=== PATIENT | female | born 2000 | race American Indian/Alaskan Native ===

== ENCOUNTER 2021-03-01 15:55 | Emergency (ER) | payer MEDICAID ==
--- NOTE | 2021-03-01 19:32 | Emergency Department Report ---
- General Chief Complaint: Chest Pain Stated Complaint: CP, LOYA X 3 DAYS Time Seen by Provider: 03/01/21 19:23 Source: patient Mode of arrival: Ambulatory Limitations: No Limitations - History of Present Illness Initial Comments: Patient is a 21-year-old female presents emergency room complaints of "not feeling well" for the past 3 days. Patient states that she recently traveled to [place]. She denies any known sick contacts. She has not been vaccinated for COVID-19. She has not been tested for COVID-19. She has associated chest tightness, headache, body aches, chills. She reports that she has mild shortness of breath. She denies any fever, vomiting, diarrhea, sore throat, ear pain. No past medical history. No allergies to medications. - Related Data Previous Rx's Medication Instructions Recorded Last Taken Type Benzonatate [Tessalon Perles] 100 mg PO Q8HR PRN #12 capsule 03/01/21 Unknown Rx Naproxen 375 mg PO BID PRN #14 tablet 03/01/21 Unknown Rx guaiFENesin ER [Mucinex ER] 600 mg PO Q12H #14 tablet.er 03/01/21 Unknown Rx Allergies Allergy/AdvReac Type Severity Reaction Status Date / Time No Known Allergies Allergy Unverified 03/01/21 18:07 ED Review of Systems ROS: Stated complaint: CP, LOYA X 3 DAYS Other details as noted in HPI Comment: All other systems reviewed and negative ED Past Medical Hx - Medications Home Medications: Home Medications Medication Instructions Recorded Confirmed Last Taken Type Benzonatate [Tessalon Perles] 100 mg PO Q8HR PRN #12 capsule 03/01/21 Unknown Rx Naproxen 375 mg PO BID PRN #14 tablet 03/01/21 Unknown Rx guaiFENesin ER [Mucinex ER] 600 mg PO Q12H #14 tablet.er 03/01/21 Unknown Rx ED Physical Exam - General Limitations: No Limitations General appearance: alert, in no apparent distress - Head Head exam: Present: atraumatic, normocephalic - Eye Eye exam: Present: normal appearance - ENT ENT exam: Present: mucous membranes moist - Respiratory Respiratory exam: Present: normal lung sounds bilaterally. Absent: respiratory distress, wheezes, rales, rhonchi, stridor, chest wall tenderness, accessory muscle use, decreased breath sounds, prolonged expiratory - Cardiovascular Cardiovascular Exam: Present: regular rate, normal rhythm, normal heart sounds. Absent: systolic murmur, diastolic murmur, rubs, gallop - Neurological Exam Neurological exam: Present: alert, oriented X3 - Psychiatric Psychiatric exam: Present: normal affect, normal mood - Skin Skin exam: Present: warm, dry, intact ED Course Vital Signs 03/01/21 18:07 Temperature 98.4 F Pulse Rate 89 Respiratory 18 Rate Blood Pressure 159/72 [Right] O2 Sat by Pulse 100 Oximetry ED Medical Decision Making - Radiology Data Radiology results: report reviewed Ordering Physician: KODY LOZANO Date of Service: 03/01/21 Procedure(s): XR chest routine 2V Accession Number(s): [id number] cc: KODY LOZANO Fluoro Time In Minutes: CHEST 2 VIEWS INDICATION / CLINICAL INFORMATION: chest tightness, sob. COMPARISON: None available. FINDINGS: SUPPORT DEVICES: None. HEART / MEDIASTINUM: No significant abnormality. LUNGS / PLEURA: No significant pulmonary or pleural abnormality. No pneumothorax. ADDITIONAL FINDINGS: No significant additional findings. IMPRESSION: 1. No significant abnormality noted. Signer Name: Kayli Orr MD Signed: 03/01/2021 7:39 PM Workstation Name: [id number] Transcribed By: JR Dictated By: Kayli Orr MD Electronically Authenticated By: Kayli Orr MD Signed Date/Time: 03/01/211938 DD/ 37 TD/TT: - Medical Decision Making Patient is a 21-year-old female presents emergency room complaints of "not feeling well" for the past 3 days. Patient states that she recently traveled to [place]. She denies any known sick contacts. She has not been vacci nated for COVID-19. She has not been tested for COVID-19. She has associated chest tightness, headache, body aches, chills. She reports that she has mild shortness of breath. She denies any fever, vomiting, diarrhea, sore throat, ear pain. No past medical history. No allergies to medications. Vitals are stable. Breath sounds are clear bilaterally, no wheezing, no rales, no rhonchi, normal oropharynx, normal TMs and canals. chest x-ray 1. No significant abnormality noted. Symptoms likely related to URI. Discussed supportive care and symptomatic treatment with patient. Advised patient Please take medication as prescribed. Increase your fluid intake. Follow-up with a primary care doctor. Return to emergency room for any new or worsening symptoms. Recommend outpatient COVID-19 testing if positive will need to self quarantine for 10 days from onset of symptoms. Critical care attestation.: If time is entered above; I have spent that time in minutes in the direct care of this critically ill patient, excluding procedure time. ED Disposition Clinical Impression: URI (upper respiratory infection) Qualifiers: URI type: unspecified URI Qualified Code(s): J06.9 - Acute upper respiratory infection, unspecified Disposition: HOME / SELF CARE / HOMELESS Is pt being admited?: No Does the pt Need Aspirin: No Condition: Stable Instructions: Viral Respiratory Infection Additional Instructions: Please take medication as prescribed. Increase your fluid intake. Follow-up with a primary care doctor. Return to emergency room for any new or worsening symptoms. Recommend outpatient COVID-19 testing if positive will need to self quarantine for 10 days from onset of symptoms. Prescriptions: guaiFENesin ER [Mucinex ER] 600 mg PO Q12H #14 tablet.er Naproxen 375 mg PO BID PRN #14 tablet PRN Reason: pain Benzonatate [Tessalon Perles] 100 mg PO Q8HR PRN #12 capsule PRN Reason: cough Referrals: GLORY MOSS MD [Staff Physician] - 3-5 Days [facility] [Provider Group] - 3-5 Days Time of Disposition: 19:53 Print Language: UKRAINIAN
--- NOTE | 2021-03-01 19:43 | XRay Report ---
CHEST 2 VIEWS INDICATION / CLINICAL INFORMATION: chest tightness, sob. COMPARISON: None available. FINDINGS: SUPPORT DEVICES: None. HEART / MEDIASTINUM: No significant abnormality. LUNGS / PLEURA: No significant pulmonary or pleural abnormality. No pneumothorax. ADDITIONAL FINDINGS: No significant additional findings. IMPRESSION: 1. No significant abnormality noted. Signer Name: Kayli Orr MD Signed: 03/01/2021 7:39 PM Workstation Name: [id number]
[2021-03-01 21:21] VITALS: BP 121/73
== END 2021-03-01 21:20 | disposition home or self-care (01) ==
LOC: ED 15:55
DX: J06.9 Acute upper respiratory infection, unspecified (principal)
CPT/HCPCS: 71046; 99283